=== PATIENT | male | born 1955 ===

== ENCOUNTER 2023-05-06 16:34 | Inpatient (IN) | payer OTHER ==
[~2023-05-06] VITALS: Ht 177.8 cm; Wt 89.8 kg
[2023-05-08] MEDS ORDERED: COZAAR50 MG PO (11:18)
[2023-05-08] MEDS ORDERED: CRESTOR PO (11:19)
[2023-05-12] MEDS ORDERED: ROSUVASTATIN CA20 MG (13:11)
[2023-05-12] MEDS ORDERED: FAMOTIDINE20 MG (13:11)
[2023-05-12] MEDS ORDERED: LOSARTAN POTASS50 MG (13:12)
[2023-05-15] MEDS ORDERED: TRAM1TAB98 PO (12:31)
[2023-05-15] MEDS ORDERED: PEPCID AC20 MG PO (12:31)
== END 2023-05-15 15:29 | disposition home or self-care (01) | DRG 330 ==
LOC: O/R 05-12 10:08 → SURG 05-12 10:30
PROVIDERS: ADMIT Surgery; ATTEND Surgery
PROC: 0DBP4ZZ Excision of Rectum, Percutaneous Endoscopic Approach (ICD-10-PCS; 2023-05-12)
PROC: 0DTN4ZZ Resection of Sigmoid Colon, Percutaneous Endoscopic Approach (ICD-10-PCS; 2023-05-12)
PROC: 0DQN4ZZ Repair Sigmoid Colon, Percutaneous Endoscopic Approach (ICD-10-PCS; principal; 2023-05-12 10:30)
DX: K57.20 Diverticulitis of large intestine with perforation and abscess without bleeding (principal); K91.72 Accidental puncture and laceration of a digestive system organ or structure during other procedure; R19.4 Change in bowel habit; I11.9 Hypertensive heart disease without heart failure